=== PATIENT | female | born 1955 | race Caucasian/White ===

== ENCOUNTER 2016-12-10 09:07 | Day surgery (SDC) | payer OTHER ==
[~2016-12-10] VITALS: Ht 170.2 cm; Wt 54.7 kg
[2016-12-10] MEDS ORDERED: LEVOTHYROXINE (10:03)
[2016-12-10 10:05] VITALS: Ht 170.2 cm; Wt 54.7 kg
[2016-12-10 10:30] VITALS: BP 134/88; PULSE 77; RESP 18
[2016-12-10] MEDS ORDERED: PROPOFOL 40 ML ONE (10:34)
[2016-12-10] MEDS ORDERED: MIDAZOLAM 1 MG/ML 2 ML INJ ONE (10:34)
[2016-12-10] MEDS ORDERED: LIDOCAINE 2% (SDV) 5 ML INJ ONE (10:34)
[2016-12-10 11:49] VITALS: BP 149/92; PULSE 88; RESP 12
--- NOTE | 2016-12-10 12:24 | GILP ---
DATE OF PROCEDURE: 12/10/2016 PROCEDURE: Esophagogastroduodenoscopy. PREOP DIAGNOSIS: Patient presenting with history of abdominal pain, unresponsive to routine therapy. Rule out peptic ulcer disease, gastritis, etc. POSTOPERATIVE DIAGNOSIS: 1. Diffuse mild gastritis. 2. Irregular Z-line. DESCRIPTION OF PROCEDURE: After informed written consent was obtained, the patient was asked to lay in the left lateral side. The patient was given intravenous anesthesia of Dr. Valencia. When the patient became somnolent, Olympus video upper endoscope was introduced into the oropharynx and then into the esophagus. Esophagus showed irregular Z-line, but no esophagitis. No ulcer disease. Scope at this time was advanced into the stomach. Stomach showed several areas of a patchy erythema. Some of them were linear to the edematous mucosal surfaces. Biopsy was done from the antrum, the lesser curvature and the fundus to rule out peptic ulcer disease. The scope at this time was advanced into the duodenal and duodenum appeared normal with no mucosal abnormality. Endoscope at this time was withdrawn. The biopsy was done from the antrum, lesser curvature of the fundus to rule out H. pylori infection. The scope at this time was withdrawn and the procedure was terminated. PLAN: Recommend to change the proton pump inhibitor therapy. Dictated By: Jose Manuel Aponte MD /jr/patricia /Document#: [id number] ; [facility]
--- NOTE | 2016-12-10 13:00 | GILP ---
DATE OF PROCEDURE: 12/10/2016 PROCEDURE: Colonoscopy and biopsy. PREOP DIAGNOSES: 1. Screening colonoscopy. 2. Chronic constipation. 3. Weight loss. 4. Rule out colon polyps or colon malignancy. POSTOP DIAGNOSES: 1. Screening colonoscopy. 2. Chronic constipation. 3. Weight loss. 4. Rule out colon polyps or colon malignancy SURGEON: Jose Manuel Aponte MD DESCRIPTION OF PROCEDURE: After informed written consent is obtained the patient was patient put in left lateral position. Intravenous anesthesia was given by anesthesiologist, Dr. Valencia. When the patient became somnolent the Olympus video colonoscope was introduced into the rectum and the scope was advanced all the way to the cecum. The entire colon appeared perfectly normal. The scope was withdrawn from the cecum and further evaluation was carried out. In the mid descending colon showed evidence of 2 polyps measuring 1 of them 2 mm, the other one is 3 mm in diameter, adjacent to each other. These were removed with the help of the cold biopsy forceps. The scope at this time was withdrawn. On the way out further evaluation was carried out. Retroflexion was performed. Minimal internal hemorrhoids were noted. The scope was withdrawn minimal external hemorrhoids were noted and the procedure was terminated. PLAN: Recommend high-fiber diet. Recommend await for the pathology report. Repeat colonoscopy in 5 years. Dictated By: Jose Manuel Aponte MD /[email or web address] /Document#: [id number] ; [facility]
== END 2016-12-10 12:11 | disposition home or self-care (01) ==
LOC: GIL 09:07
PROVIDERS: ATTEND Internal Medicine Gastroenterology
DX: Z12.11 Encounter for screening for malignant neoplasm of colon (principal); D12.4 Benign neoplasm of descending colon
CPT/HCPCS: 43239; 45380; 88305; 88312; J2250; Z7610

== ENCOUNTER 2017-02-13 22:59 | Emergency (ER) | payer OTHER ==
[~2017-02-13] VITALS: Ht 170.2 cm; Wt 54.5 kg
[~2017-02-13 22:59] MED LIST: LEVOTHYROXINE
[2017-02-13 23:01] VITALS: Ht 170.2 cm; Wt 54.5 kg
--- NOTE | 2017-02-14 00:21 | ERA ---
ER Documentation Chief Complaint Date/Time DATE: 02/14/17 TIME: 00:21 Chief Complaint blood in stools bright red color this morning, HPI The patient is a 61-year-old female, presenting to the ER because of bright red blood in the stool this morning. She had similar symptoms previously. She had an EGD and colonoscopy on December 10, 2016 and she was unable to contact her fitness and wellness director for the result. She feels very anxious about the results. She denies syncope, near syncope, neck pain, chest pain, abdominal pain, vomiting, dysuria, diarrhea. She does not smoke nor drink Past medical history: Psoriatic arthritis, hypertension Past surgical history: According to the medical record, the EGD showed gastritis and she had polypectomy during colonoscopy on December 10, 2016and internal hemorrhoids ROS All systems reviewed and are negative except as per history of present illness. Medications Home Meds Active Scripts Hydrocortisone Acetate (Anusol-Hc) 25 Mg Supp.rect, 1 SUPP PA BID Y for HEMORROID PAIN/ITCHING, #12 SUPP.RECT Prov:YVETTE MIR MD 02/14/17 Bisacodyl* (Dulcolax*) 5 Mg Tablet.dr, 10 MG PA DAILY Y for CONSTIPATION, #10 TAB Prov:YVETTE MIR MD 02/14/17 Polyethylene Glycol* (Miralax*) 17 Gm Powd.pack, 17 GM PO DAILY, #7 Prov:YVETTE MIR MD 02/14/17 Reported Medications Levothyroxine Sodium* (Levothyroxine Sodium*) 75 Mcg Tablet, 75 MCG PO BEFORE BREAKFAST, #30 TAB 02/14/17 Discontinued Reported Medications [Levothyroxine] No Conflict Check 12/10/16 Allergies Allergies: Coded Allergies: No Known Allergy (Unverified , 12/10/16) PMhx/Soc History of Surgery: Yes (CHOLECYSTECTOMY, LEFT KNEE SX, HERNIA REPAIR) Anesthesia Reaction: No Hx Neurological Disorder: No Hx Respiratory Disorders: No Hx Cardiac Disorders: Yes (HTN, HYPERLIPIDEMIA) Hx Psychiatric Problems: No Hx Miscellaneous Medical Probl: No Hx Alcohol Use: No Hx Substance Use: No Hx Tobacco Use: No Physical Exam Vitals Vital Signs Date Time Temp Pulse Resp B/P Pulse Ox O2 Delivery O2 Flow Rate FiO2 02/14/17 01:25 89 15 147/74 98 Room Air 02/13/17 23:01 98.5 107 20 144/83 98 Physical Exam Const: No acute distress. Head: Atraumatic. Eyes: Normal Conjunctiva. ENT: Normal External Ears, Nose and Mouth. Neck: Full range of motion. No meningismus. Resp: Clear to auscultation bilaterally. Cardio: Regular rate and rhythm. Abd: Soft, non distended, normal bowel sounds, non tender. Skin: No petechiae or rashes. Back: No midline or flank tenderness. Ext: No cyanosis, or edema. Neur: Awake and alert. No focal deficit Psych: Normal Mood and Affect. Result Diagram: 02/14/17 0054 02/14/17 005 Results 24 hrs Laboratory Tests Test 02/14/17 00:54 White Blood Count 12.310^3/ul Red Blood Count 4.0610^6/ul Hemoglobin 13.0g/dl Hematocrit 38.5% Mean Corpuscular Volume 94.8fl Mean Corpuscular Hemoglobin 32.0pg Mean Corpuscular Hemoglobin Concent 33.8g/dl Red Cell Distribution Width 12.0% Platelet Count 16404^3/UL Mean Platelet Volume 9.3fl Neutrophils % 82.8% Lymphocytes % 11.3% Monocytes % 5.4% Eosinophils % 0.1% Basophils % 0.2% Nucleated Red Blood Cells % 0.0/100WBC Neutrophils # 10.210^3/ul Lymphocytes # 1.410^3/ul Monocytes # 0.710^3/ul Eosinophils # 0.010^3/ul Basophils # 0.010^3/ul Nucleated Red Blood Cells # 0.010^3/ul Sodium Level 134mmol/L Potassium Level 3.7mmol/L Chloride Level 96mmol/L Carbon Dioxide Level 31mmol/L Anion Gap 11 Blood Urea Nitrogen 14mg/dl Creatinine 0.65mg/dl Glucose Level 106mg/dl Calcium Level 9.7mg/dl Total Bilirubin 0.1mg/dl Direct Bilirubin 0.00mg/dl Indirect Bilirubin 0.1mg/dl Aspartate Amino Transf (AST/SGOT) 58IU/L Alanine Aminotransferase (ALT/SGPT) 73IU/L Alkaline Phosphatase 91IU/L Total Protein 7.7g/dl Albumin 4.2g/dl Globulin 3.50g/dl Albumin/Globulin Ratio 1.20 Lipase 55U/L Procedures/MDM MEDICAL MAKING DECISION: The patient is a 61-year-old female, presenting to the ER because she is very anxious about her recent endoscopies and not present with hematochezia. I reviewed EGD and a colonoscopy result with the patient and she felt much better. The differential diagnoses considered include but are not limited to gastritis, peptic ulcer disease, esophageal varices, Anisha-Landry tear, carcinoma, polyp , hemorrhoid, fissure, diverticulosis, angiodysplasia. Departure Diagnosis: Primary Impression: Hemorrhoids Condition: Good Comments She was discharged with MiraLAX and Anusol HC I discussed the findings with the patient. I advised the patient to follow-up with the primary physician in about 1-2 days, sooner if needed and return if any concern. The patient's blood pressure was elevated (>120/80) but appears stable without evidence of hypertension emergency or urgency. The patient was counseled about the risks of hypertension and urged to pursue outpatient monitoring and therapy within a week with their primary care physician. YVETTE MIR MD Feb 14, 2017 00:21
[2017-02-14 01:04] LABS: BASOPHILS % 0.2 % (0.0-2.0); EOSINOPHILS % 0.1 % (0.0-7.0); HEMATOCRIT 38.5 % (37.0-47.0); LYMPHOCYTES # 1.4 10^3/ul (0.8-2.9); LYMPHOCYTES % 11.3 % (15.0-51.0); MEAN CORPUSCULAR HGB CONC 33.8 g/dl (32.0-37.0); MEAN CORPUSCULAR VOLUME 94.8 fl (82.0-101.0); MEAN PLATELET VOLUME 9.3 fl (7.4-10.4); MONOCYTE # 0.7 10^3/ul (0.3-0.9); MONOCYTES % 5.4 % (0.0-11.0); NEUTROPHIL # 10.2 10^3/ul (1.6-7.5); NEUTROPHILS % 82.8 % (39.0-77.0); PLATELET COUNT 243 10^3/UL (140-415); RED BLOOD COUNT 4.06 10^6/ul (4.20-5.40); WHITE BLOOD COUNT 12.3 10^3/ul (4.8-10.8)
[2017-02-14 01:25] VITALS: BP 147/74; PULSE 89; RESP 15
[2017-02-14 01:30] LABS: ALBUMIN 4.2 g/dl (3.3-4.9); ALBUMIN/GLOBULIN RATIO 1.2; BILIRUBIN,INDIRECT 0.1 mg/dl (0-1.1); BILIRUBIN,TOTAL 0.1 mg/dl (0.2-1.3); CALCIUM 9.7 mg/dl (8.4-10.2); CREATININE 0.65 mg/dl (0.44-1.00); POTASSIUM 3.7 mmol/L (3.5-5.1); TOTAL PROTEIN 7.7 g/dl (6.1-8.1)
[2017-02-14] MEDS ORDERED: POLY17PO6 PO (02:22)
[2017-02-14] MEDS ORDERED: BISA-57 PR (02:23)
[2017-02-14] MEDS ORDERED: HYDR25SU23 PR (02:23)
[2017-02-14] MEDS ORDERED: LEVO75TA5 PO (02:50)
== END 2017-02-14 02:55 | disposition home or self-care (01) ==
LOC: E/R 22:59
DX: K64.9 Unspecified hemorrhoids (principal); I10 Essential (primary) hypertension
CPT/HCPCS: 36415; 80053; 83690; 85025; Z7502; 99283